=== PATIENT | female | born 1955 | race Caucasian/White ===

== ENCOUNTER → 2016-09-01 | Outpatient (CLI) | payer OTHER ==
--- NOTE | 2016-09-01 10:05 | MA ---
Screening Digital Mammogram With iCAD Analysis Clinical Indications: Routine screening. A paternal aunt was diagnosed with breast cancer in her 60s. Technique: Standard cephalocaudal projections are obtained. Digital breast tomosynthesis was performe d in the MLO projection with reconstruction at 1.0 mm slice thickness and composite MLO views reconst ructed. This examination is processed by the iCAD computer-aided detection system. Comparison: June 2015, August 2013, July 2012, May 2011, March 2010, March 2009 . Breast Density: Type C: Heterogeneously dense. Findings: CAD was reviewed. There is a well-circumscribed nodular opacity identified in the upper sli ghtly outer left breast on the tomographic study. No definite correlate is found on the craniocaudal view, and this was not seen on prior studies but may have been obscured by adjacent dense breast tiss ue. No suspicious microcalcifications are seen. The right breast is stable in appearance. Impression: Left breast nodular asymmetry requires further evaluation, BI-RADS 0. Recommendation: Targeted left breast ultrasound with additional mammographic evaluation at the discre tion of the interpreting radiologist. [facility] will send a result letter to the patient.
== END ==
LOC: FIMAGING 07:26
DX: Z12.31 Encounter for screening mammogram for malignant neoplasm of breast (principal); R92.8 Other abnormal and inconclusive findings on diagnostic imaging of breast; Z85.3 Personal history of malignant neoplasm of breast
CPT/HCPCS: G0202

== ENCOUNTER → 2016-09-09 | Outpatient (CLI) | payer OTHER | LOC: FIMAGING 12:56 | DX: N63 Unspecified lump in breast (principal) ==